=== PATIENT | female | born 1950 | race Caucasian/White ===

== ENCOUNTER → 2016-12-16 | Outpatient (REF) | payer MEDICARE, MEDICAID | LOC: M SFHCWAGY 09:41 | PROVIDERS: ATTEND Nurse Practitioner Family | DX: R87.615 Unsatisfactory cytologic smear of cervix (principal) ==

== ENCOUNTER → 2017-05-13 | Outpatient (REF) | payer MEDICARE, MEDICAID | LOC: M SFHCWAGY 12:10 | DX: Z12.4 Encounter for screening for malignant neoplasm of cervix (principal); N95.2 Postmenopausal atrophic vaginitis | CPT/HCPCS: G0123 ==

== ENCOUNTER → 2018-06-15 | Outpatient (CLI) | payer MEDICARE, MEDICAID ==
[2018-06-15 12:23] LABS: BASO % 0.8 % (0.0-1.0); EOS # 0.2 10^3/uL (0.0-0.50); HEMATOCRIT 43.6 % (36.0-47.0); HEMOGLOBIN 13.9 g/dl (12.0-15.5); LYMPH # 2.1 10^3/uL (1.5-4.5); LYMPH % 55.6 % (24.0-44.0); MEAN CORPUSCULAR HEMOGLOBIN 29.3 pg (27.0-33.0); MEAN CORPUSCULAR HGB CONC 31.9 g/dl (32.0-36.5); MEAN CORPUSCULAR VOLUME 91.8 fl (80.0-96.0); MONO # 0.2 10^3/uL (0.0-0.8); MONO % 6.1 % (0.0-5.0); NEUTROPHILS # 1.3 10^3/uL (1.8-7.7); NEUTROPHILS % 33.2 % (36.0-66.0); PLATELET COUNT, AUTOMATED 270 10^3/uL (150-450); RED BLOOD COUNT 4.75 10^6/uL (4.00-5.40); WHITE BLOOD COUNT 3.8 10^3/uL (4.0-10.0)
[2018-06-15 12:51] LABS: ALBUMIN 4.5 GM/DL (3.2-5.2); ALT/SGPT 33 U/L (12-78); BILIRUBIN,TOTAL 0.5 MG/DL (0.2-1.0); BLOOD UREA NITROGEN 11 MG/DL (7-18); CALCIUM LEVEL 9.9 MG/DL (8.8-10.2); CARBON DIOXIDE LEVEL 29 MEQ/L (21-32); CHLORIDE LEVEL 107 MEQ/L (98-107); CHOLESTEROL LEVEL 203 MG/DL (<200); CHOLESTEROL RISK RATIO 2.388 (<5); CREATININE FOR GFR 0.72 MG/DL (0.55-1.30); GLOMERULAR FILTRATION RATE > 60.0 (>45); GLUCOSE, FASTING 101 MG/DL (70-100); HDL CHOLESTEROL 85 MG/DL (>40); LDL CHOLESTEROL 102 MG/DL (<100); NON-HDL-C 118 MG/DL; POTASSIUM SERUM 5.7 MEQ/L (3.5-5.1); SODIUM LEVEL 139 MEQ/L (136-145); TRIGLYCERIDES LEVEL 79 MG/DL (<150)
[2018-06-15 12:58] LABS: TOTAL 25(OH) VITAMIN D 28.5 NG/ML (30.0-100.0)
== END ==
LOC: M WUC 10:22
PROVIDERS: ATTEND Family Medicine
DX: Z00.00 Encounter for general adult medical examination without abnormal findings (principal); E55.9 Vitamin D deficiency, unspecified; Z79.899 Other long term (current) drug therapy

== ENCOUNTER → 2019-08-28 | Outpatient (CLI) | payer MEDICARE, MEDICAID ==
[2019-08-28 14:24] LABS: THYROID STIMULATING HORMONE 0.845 uIU/ML (0.358-3.740); THYROXINE (T4) 8.3 UG/DL (4.5-12.0)
[2019-08-30 09:31] LABS: LUTEINIZING HORMONE 37.6 mIU/mL
[2019-08-30 09:32] LABS: FOLLICLE STIMULATING HORMONE 119.6 mIU/mL
[2019-08-31 18:13] LABS: TESTOSTERONE FREE (DIRECT) 0.7 pg/mL (0.0-4.2)
== END ==
LOC: M WUC 10:01
PROVIDERS: ATTEND Nurse Practitioner Family
DX: Z00.00 Encounter for general adult medical examination without abnormal findings (principal); Z79.899 Other long term (current) drug therapy

== ENCOUNTER → 2019-08-28 | Outpatient (CLI) | payer MEDICARE, MEDICAID ==
[2019-08-28 14:06] LABS: HEMOGLOBIN 13.2 g/dl (12.0-15.5); MEAN CORPUSCULAR HEMOGLOBIN 30.2 pg (27.0-33.0); MEAN CORPUSCULAR HGB CONC 32.2 g/dl (32.0-36.5); MEAN CORPUSCULAR VOLUME 93.8 fl (80.0-96.0); PLATELET COUNT, AUTOMATED 319 10^3/uL (150-450); RED BLOOD COUNT 4.37 10^6/uL (4.00-5.40); WHITE BLOOD COUNT 3.7 10^3/uL (4.0-10.0)
[2019-08-28 14:24] LABS: ALBUMIN 4.2 GM/DL (3.2-5.2); ALT/SGPT 33 U/L (12-78); BILIRUBIN,TOTAL 0.7 MG/DL (0.2-1.0); BLOOD UREA NITROGEN 13 MG/DL (7-18); CALCIUM LEVEL 9.4 MG/DL (8.8-10.2); CARBON DIOXIDE LEVEL 28 MEQ/L (21-32); CHLORIDE LEVEL 105 MEQ/L (98-107); CHOLESTEROL LEVEL 193 MG/DL (<200); CHOLESTEROL RISK RATIO 2.718 (<5); CREATININE FOR GFR 0.68 MG/DL (0.55-1.30); GLOMERULAR FILTRATION RATE > 60.0 (>45); GLUCOSE, FASTING 100 MG/DL (70-100); HDL CHOLESTEROL 71 MG/DL (>40); LDL CHOLESTEROL 111 MG/DL (<100); NON-HDL-C 122 MG/DL; POTASSIUM SERUM 4.3 MEQ/L (3.5-5.1); SODIUM LEVEL 138 MEQ/L (136-145); TOTAL PROTEIN 6.8 GM/DL (6.4-8.2); TRIGLYCERIDES LEVEL 56 MG/DL (<150)
[2019-08-30 09:31] LABS: TOTAL 25(OH) VITAMIN D 40.4 NG/ML (30.0-100.0)
== END ==
LOC: M WUC 09:58
PROVIDERS: ATTEND Family Medicine
DX: E55.9 Vitamin D deficiency, unspecified (principal); Z00.00 Encounter for general adult medical examination without abnormal findings; Z79.899 Other long term (current) drug therapy

== ENCOUNTER → 2019-09-22 | Outpatient (CLI) | payer MEDICARE, MEDICAID ==
[~2019-09-22] MED LIST: ANAS1TAB2 PO; CITRTAB14 PO; D31000TA2 PO; MULTCAP PO; OMEGCAP4 PO; OXYC1TAB23 PO; SERT50TA29 PO; VITA-243 PO
--- NOTE | 2019-09-22 12:34 | REP ---
BILATERAL MAMMOGRAM WITH 3D TOMOSYNTHESIS: Family history of breast cancer in sister over age 50 and maternal aunt over age 50. [facility] lifetime risk of breast cancer 14.5%. Comparison mammogram 12/16/2016 as well as other prior exams. MLO and CC views of both breasts are performed with 3D tomosynthesis. There is moderate dense heterogeneous fibroglandular tissue seen bilaterally. I suspect a spiculated nodule posteriorly in the upper outer quadrant of the left breast in the range of 1 cm in diameter. Just anterior to this, there appears to be a smoothly marginated nodule slightly greater than 1 cm in diameter. Otherwise, no mass is seen elsewhere bilaterally and there are no suspicious clustered microcalcifications. IMPRESSION: BIRADS 0: BI-RADS/ACR category 0 mammogram, Incomplete: Need additional imaging evaluation and/or prior mammograms for comparison. ACR 0 incomplete. Suspect spiculated nodule posterior upper outer quadrant of the left breast in the range of 1 cm in diameter. A smoothly marginated nodule is seen just anterior to this. Recommend spot compression views and ultrasound to further evaluate. ACR 0 incomplete. This mammogram was interpreted with the aid of an FDA-approved computer-aided detection system. The patient states that she or he has not had a clinical breast exam in over a year. Patient letter being requested is M0. Hari stauffer: Latayna
--- NOTE | 2019-10-27 10:24 | DEXA ---
AP SPINE L1 - L4 1.152 -0.3 1.3 LT FEMUR TOTAL 0.743 -2.1 -0.7 LT NECK 0.721 -2.3 -0.7 RT FEMUR TOTAL 0.759 -2.0 -0.6 RT NECK 0.777 -1.9 -0.3 TOTAL BODY TOTAL OTHER COMMENTS: Normal Bone Densitometry of the spine. There is low bone density of the hips. The decreased density of the spine does not represent a significant change. The increased density of the left hip does not represent a significant change. The decreased density of the right hip does not represent a significant change. The density of the spine has decreased 0.9% since the initial exam on 11/16/08. The decreased 1.1% since the most recent exam on 12/16/16. The density of the left hip has decreased 7.9% since the initial exam on 11/16/08. The density of the left hip has increased 1.1% since the most recent exam on 12/16/16. The density of the right hip has decreased 7.1% since the initial exam on 11/16/08. The density of the right hip has decreased 1.8% since the most recent exam on 12/16/16. FOLLOW-UP: Recommendation for the next bone density exam: 2 years. HANH
== END ==
LOC: M WHC 09:29
PROVIDERS: ATTEND Family Medicine
DX: R92.2 Inconclusive mammogram (principal); Z13.820 Encounter for screening for osteoporosis; M81.0 Age-related osteoporosis without current pathological fracture; Z80.3 Family history of malignant neoplasm of breast

== ENCOUNTER → 2019-09-24 | Outpatient (CLI) | payer MEDICARE, MEDICAID ==
--- NOTE | 2019-09-24 10:51 | REP ---
DIAGNOSTIC MAMMOGRAM LEFT BREAST WITH LEFT BREAST ULTRASOUND: Spot compression view of the left breast performed and correlated with a recent mammogram of 09/22/2019 and compared to other prior studies. Spot compression views confirm the present of an irregular nodule in the outer left breast approximately 4-5 cm from the nipple. This is in the range of 1 cm in diameter. Just anterior and inferior to this, in the region of 4-o'clock left breast, there is a smoothly marginated nodule with a maximum diameter of about 1 cm. Real-time sonographic evaluation of outer left breast demonstrate an irregular solid nodule at 2-o'clock to 3-o'clock positions, approximately 4 cm from the nipple, with a maximum diameter of 8 mm. This corresponds to the irregular nodule on the mammogram. At 4-o'clock position, there is an oval hypoechoic lesion, closer to the nipple, about 2-3 cm from the nipple, measuring 7 x 9 x 3 mm. IMPRESSION: BIRADS 5: BI-RADS/ACR category 5 mammogram. Highly Suggestive of Malignancy - appropriate action should be taken. ACR category 5, findings compatible with breast cancer. Irregular somewhat spiculated solid nodule identified mammographically and sonographically at 2-o'clock to 3-o'clock position of the left breast approximately 4 cm from the nipple. Recommend ultrasound guided biopsy. This nodule is consistent with cancer. More anteriorly and inferiorly at 4-o'clock left breast, closer to the nipple, there is an oval hypoechoic nodular, which could represents a complex cyst. Recommend ultrasound guided sampling. Patient letter requested is M4.
== END ==
LOC: M WHC 08:30
PROVIDERS: ATTEND Family Medicine
DX: R92.2 Inconclusive mammogram (principal); N63.21 Unspecified lump in the left breast, upper outer quadrant

== ENCOUNTER → 2019-10-06 | Outpatient (CLI) | payer MEDICARE, MEDICAID ==
--- NOTE | 2019-11-26 09:11 | REP ---
FOCUSED LEFT BREAST SONOGRAPHY: ULTRASOUND GUIDANCE This report was delayed due to a malware attack on this facility. HISTORY: Left breast mass, ultrasound-guided biopsy x2 at 2 o'clock and 4 o'clock with 2 clips placed. FINDINGS: Sonographic guidance is provided to Dr. Devries, who performed ultrasound- guided needle biopsy procedure at 2 targets with HydroMARK clip placement at both sites. HANH
--- NOTE | 2019-11-26 09:13 | REP ---
UNILATERAL DIGITAL DIAGNOSTIC LEFT BREAST MAMMOGRAPHY WITH CAD: 2-VIEWS HISTORY: Marker clip placement views. Patient is status post ultrasound-guided needle biopsy procedure for two different sonographic targets performed by Dr. Devries 2 o'clock and 4 o'clock position. Marker clip placement. COMPARISON: Mammography 09/24/2019 and 09/22/2019. FINDINGS: In the 2 o'clock position of the left breast superiorly and laterally there is a marker clip in good position within the inferior and anterior edge of the spiculated nodule. More inferiorly and laterally in the left breast a second marker clip is visualized. No mammographically apparent target is seen. No hematoma is noted. IMPRESSION: Marker clips in good position. This mammogram is read with the aid of a computer-aided detection system approved by the FDA. HANH
--- NOTE | 2019-12-02 19:16 | ROOPDOC ---
[facility] Report Of Operation Report of Operation This is a late entry note for the encounter from the date 10/06/19. Delay is due to major systemwide [facility] computer outage. Procedure Date 10/06/19 Dx: two suspicious lesions in the left breast at 2:00 and 4:00 Procedure: ultrasound guided biopsy of lesion at 2:00 and 4:00 Findin clips seen in expected position on the left postbiopsy mammogram Surgeon: Katelyn Walsh Lidocaine 1% LOT [id number] Expiration 08/2022 Sodium Bicarbonate 8.4% LOT [id number] Expiration 08/08/2020 L 2:00 bx: Hydromark clip LOT [id number] Expiration 07/2022 SHAPE 3 Bx device: BARD [id number] x10 cm LOT [id number] Expiration 04/2022 L 4:00 bx: Hydromark clip LOT [id number] Expiration 04/2022 SHAPE 4 Bx device: BARD [id number] x10 cm LOT [id number] Expiration 05/2022 Informed consent was obtained. The most common risk and possible complications including bleeding, hematoma, bruising, infection, injury to surrounding s tructures were explained to the patient and she expressed understanding. Patient was placed on the bed in the supine position. Appropriate time out was done stating patients name, date of , and the procedure to be performed. The left breast was prepped and draped in the usual fashion. The ultrasound was used to confirm the location of the lesions in the left breast at 2:00 3CFN and at 4:00 2CFN. Procedure was started with biopsy of the lesion at 2:00 3CFN. Plain Lidocaine 1% and 8.4% sodium bicarbonate 10:1 mix was used to anesthetize the skin, the biopsy site and tissues along the anticipated biopsy tract. Small skin incision was made with blade number 11. BARD Marquee 14G cannula with introducer ([id number]) was inserted through the incision and advanced under the ultrasound guidance to position immediately adjacent to the lesion. Next, the introducer was removed and BARD Marquee 14G biopsy device was places in the cannula. Pre- biopsy imaging, and post-biopsy imaging were captured. Five good core biopsies were taken at various levels of the lesion. Specimen was placed in formaldehyde, labeled with appropriate biopsy site and patients name, and sent to pathology for evaluation. Next, the biopsy device was withdrawn and a clip introducer was inserted into the biopsy site via the cannula. The SHAPE 3 Hydromark clip was deployed under sonographic guidance. Post-clip placement image was captured. Manual pressure over the biopsy cavity and tract was held after the clip introducer was withdrawn. No bleeding was noted upon removal of the pressure. At this point, our attention was shifter toward the lesion at 4:00 2 CFN. The u ltrasound was used to localize the lesion again. Next, plain Lidocaine 1% and 8.4% sodium bicarbonate 10:1 mix was used to anesthetize the skin, the biopsy site and tissues along the anticipated biopsy tract. Small skin incision was made with blade number 11. A new BARD Marquee 14G cannula with introducer ([id number]) was inserted through the incision and advanced under the ultrasound guidance to position immediately adjacent to the lesion. Next, the introducer was removed and BARD Marquee 14G biopsy device was places in the cannula. Pre- biopsy imaging, and post-biopsy imaging were captured. Five good core biopsies were taken at various levels of the lesion. Specimen was placed in formaldehyde, labeled with appropriate biopsy site and patients name, and sent to pathology for evaluation. Next, the biopsy device was withdrawn and a clip introducer was inserted into the biopsy site via the cannula. The SHAPE 4 Hydromark clip was deployed under sonographic guidance. Post-clip placement image was captured. Manual pressure over the biopsy cavity and tract was held after the clip introducer was withdrawn. No bleeding was noted upon removal of the pressure. Post-biopsy mammogram of the left breast was obtained and showed both clips in expected position. Postprocedural dressing was placed. Patient tolerated procedure well. Discharge instructions were discussed with the patient and she expressed understanding. KATELYN WALSH DO Dec 02, 2019 19:16
== END ==
LOC: M WHC 12:56
PROVIDERS: ATTEND Surgery
DX: N63.21 Unspecified lump in the left breast, upper outer quadrant (principal); N63.23 Unspecified lump in the left breast, lower outer quadrant

== ENCOUNTER → 2019-10-14 | Outpatient (REF) | payer MEDICARE, MEDICAID ==
[2019-11-28 11:42] LABS: BLOOD UREA NITROGEN 16 MG/DL (7-18); CALCIUM LEVEL 9.7 MG/DL (8.8-10.2); CARBON DIOXIDE LEVEL 32 MEQ/L (21-32); CHLORIDE LEVEL 106 MEQ/L (98-107); CREATININE FOR GFR 0.75 MG/DL (0.55-1.30); GLOMERULAR FILTRATION RATE > 60.0 (>45); GLUCOSE, FASTING 112 MG/DL (70-100); POTASSIUM SERUM 5.1 MEQ/L (3.5-5.1); SODIUM LEVEL 141 MEQ/L (136-145)
== END ==
LOC: M SFHCWAGY 12:42
PROVIDERS: ATTEND Surgery
DX: C50.912 Malignant neoplasm of unspecified site of left female breast (principal)

== ENCOUNTER → 2019-10-22 | Outpatient (CLI) | payer MEDICARE, MEDICAID ==
[~2019-10-22] MED LIST changes: +PROHANCE 279.3MG/ML 5ML VIAL As Ordered ONE
--- NOTE | 2019-11-30 07:48 | REP ---
BILATERAL BREAST MRI STUDY WITHOUT AND WITH INTRAVENOUS (IV) GADOLINIUM HISTORY: Left breast cancer. Patient has undergone ultrasound-guided needle biopsy procedure 10/06/2019. COMPARISON: Mammography and sonography of the left breast is from 09/24/2019. Post-clip placement mammogram of the left breast from 10/06/2019. GADOLINIUM ENHANCEMENT DOSE: 10 mL of intravenous ProHance. MRI FINDINGS: T2-weighted scans demonstrate that there are two HydroMARK needle biopsy marker clips devices in the lateral aspect of the left breast, one at approximately 4 o'clock in the posterior third and the other at approximately 2 o'clock in the posterior third of the left breast. There is no evidence of axillary lymphadenopathy on either side. No internal mammary adenopathy is appreciated. There is a moderate pattern of symmetric fibroglandular tissue. There is a [id number]-[id number] pattern of somewhat nodular background parenchymal enhancement bilaterally. Adjacent to the lesion in the left superolateral quadrant 2 o'clock region, there is a spiculated area of heterogeneous enhancement representing the known malignancy. There is only a small focus of enhancement demonstrating washout characteristics. The remainder of the lesion demonstrates fairly low level of enhancement, but it is suspicious morphologically. There is no other focus of enhancement washout characteristics in either breast on dynamically acquired sequential contrast enhanced study. No other suspicious morphologic abnormality is seen on either side. IMPRESSION: BI-RADS Category 6 known left breast malignancy. No other focus of suspicion is seen. Spiculated 8-mm lesion adjacent to the recently placed biopsy marker clip 2 o'clock position left breast upper outer quadrant. MTDD
== END ==
LOC: M RAD 07:20
PROVIDERS: ATTEND Physician Assistant Medical
DX: C50.912 Malignant neoplasm of unspecified site of left female breast (principal)
CPT/HCPCS: A9576; C8908

== ENCOUNTER → 2019-11-03 | Outpatient (CLI) | payer MEDICARE, MEDICAID ==
[~2019-11-03] MED LIST changes: -PROHANCE 279.3MG/ML 5ML VIAL As Ordered ONE
== END ==
LOC: M PLALAB 09:15
PROVIDERS: ATTEND Surgery
DX: C50.912 Malignant neoplasm of unspecified site of left female breast (principal)

== ENCOUNTER → 2019-11-04 | Outpatient (CLI) | payer MEDICARE, MEDICAID | LOC: M LABSMTC 12:44 | PROVIDERS: ATTEND Anesthesiology | DX: Z01.812 Encounter for preprocedural laboratory examination (principal); Z20.828 Contact with and (suspected) exposure to other viral communicable diseases | CPT/HCPCS: C9803; U0003 ==

== ENCOUNTER 2019-11-09 06:36 | Day surgery (SDC) | payer MEDICARE, MEDICAID ==
[~2019-11-09] VITALS: Ht 152.4 cm; Wt 50.3 kg
[~2019-11-09 06:36] MED LIST changes: -ANAS1TAB2 PO; -CITRTAB14 PO; -MULTCAP PO; -OXYC1TAB23 PO; -VITA-243 PO
[2019-11-09] MEDS ORDERED: HEPARIN SOD (PORCINE) 5000UNITS/ML 1ML VIAL/SYRINGE As Ordered ONE (07:24)
[2019-11-09] MEDS ORDERED: ceFAZolin 2 GM/D5W 50 ML IV BAG (J0690 PER 500MG) As Ordered ONE (07:24)
[2019-11-09] MEDS ORDERED: HEPARIN SOD (PORCINE) 5000UNITS/ML 1ML VIAL/SYRINGE SQ ONE (08:00)
[2019-11-09] MEDS ORDERED: LR 1,000 ML IV ONE (08:00)
[2019-11-09] MEDS ORDERED: ceFAZolin SOD 2 GM in IV 1 EA IV ONE (08:00)
[2019-11-09] MEDS ORDERED: LIDOCAINE 1% SDV 30ML VIAL As Ordered ONE (10:23)
[2019-11-09] MEDS ORDERED: BUPIVACAINE HCL 0.25% 30ML VIAL As Ordered ONE (10:23)
[2019-11-09] MEDS ORDERED: METHYLENE BLUE 0.5% (5MG/ML) 10 ML AMP (PROVAYBLUE) As Ordered ONE (10:24)
[2019-11-09] MEDS ORDERED: LIDOCAINE 2% 100MG/5ML SDV (FOR ANES.) As Ordered ONE (10:58)
[2019-11-09] MEDS ORDERED: MIDAZOLAM INJ 2MG/2ML VIAL (J2250 PER 1MG) As Ordered ONE (10:58)
[2019-11-09] MEDS ORDERED: propofoL 200 MG/20 ML VIAL As Ordered ONE ×2 (10:58→11:17)
[2019-11-09] MEDS ORDERED: dexameTHASONE 4 MG/ML 1ML VIAL (J1100 PER 1MG) As Ordered ONE (10:58)
[2019-11-09] MEDS ORDERED: ROCURONIUM BROMIDE 50 MG/5 ML VIAL As Ordered ONE (10:58)
[2019-11-09] MEDS ORDERED: SUCCINYLCHOLINE 100 MG/5 ML SYRINGE (J0330) As Ordered ONE (10:58)
[2019-11-09] MEDS ORDERED: ACETAMINOPHEN 1000MG 100ML IV BTL (OFIRMEV) (J0131 PER 10MG) As Ordered ONE (10:58)
[2019-11-09] MEDS ORDERED: METOCLOPRAMIDE INJ 10MG/2ML VIAL (J2765 PER 1) As Ordered ONE (10:58)
[2019-11-09] MEDS ORDERED: ONDANSETRON 4MG/2ML VIAL As Ordered ONE (10:58)
[2019-11-09] MEDS ORDERED: fentaNYL 250 MCG/5 ML INJECTION (J3010) As Ordered ONE (10:58)
[2019-11-09] MEDS ORDERED: PHENYLephrine HCL 500 MCG/5 ML (100MCG/ML) SYRINGE (J2370) As Ordered ONE (11:19)
[2019-11-09] MEDS ORDERED: ePHEDrine SULFATE 25 MG/5 ML(5MG/ML) SYRINGE As Ordered ONE (11:33)
[2019-11-09] MEDS ORDERED: OXYC1TAB23 PO (14:05)
[2019-11-09] MEDS ORDERED: LR 1,000 ML IV SCH (14:45)
[2019-11-09] MEDS ORDERED: fentaNYL 100 MCG/2 ML INJECTION (J3010) IV PRN (14:45)
[2019-11-09] MEDS ORDERED: ONDANSETRON 4MG/2ML VIAL IV PRN (14:45)
[2019-11-09] MEDS ORDERED: PERCOCET 5MG/325MG TAB PO PRN (14:45)
[2019-11-09] MEDS ORDERED: METOCLOPRAMIDE INJ 10MG/2ML VIAL (J2765 PER 1) IV PRN (14:45)
[2019-11-09 16:20] VITALS: BP 125/72
--- NOTE | 2019-11-09 20:42 | ROOPDOC ---
[facility] Report Of Operation Report of Operation DATE OF PROCEDURE: 11/09/19 PREPROCEDURE DIAGNOSES: Left breast cancer POSTPROCEDURE DIAGNOSES: Left breast cancer PROCEDURE: left breast lumpectomy with intraop wire placement and left sentinel lymph node biopsy SURGEON: Katelyn Walsh RENTAL COORDINATOR: ANESTHESIA: general ESTIMATED BLOOD LOSS: Approximately 5 mL. COMPLICATIONS: none REMARKS: wire is centrally placed in the specimen. hydromark was noted during dissection and removed to prevent misplacement. Black stitch was placed at the site of clip PROCEDURE NOTE: DESCRIPTION OF PROCEDURE: INDICATIONS: Ms. Vega was found to have a suspicious 2 lesions (2:00 and 4:00) in her left breast. Sono corelates were identified and US guided biopsy was done of each lesion. 2:00 left breast lesion came back as IDC which needs surgical i ntervention. 4:00 lesion came back as fibroadenomatous change and does not need surgical intervention. After detailed discussion regarding Ms. Vega 2:00 left breast cancer, patient opted for breast conservative surgery with sentinel lymph node biopsy with intraoperative wire placement. She was medically cleared for surgery by her primary care doctor. Risks and possible complications of surgical procedure including bleeding, infection and injury to surrounding structures were explained to the patient and she wished to proceed. Consent was signed. My initials were placed on the operative site. Subcutaneous injection of 5000 units of heparin was done in Preop. The injection of radioactive tracer was done in radiology department preoperatively. Lymphoscintigraphy imaging was reviewed in preop. DETAILS: Patient was taken to the operating room and placed on the operating room table. A sign in was called stating patients name, date of and the procedure to be done. Preoperative antibiotics were infused. Smooth induction of general anesthesia was done. Patients hands were extended on arm rests. Care was taken not to over extend the arms. Procedure was started with left breast intraop wire localization. Appropriate time out was done and patients name, date of , and the procedure to be done were confirmed. Left breast was cleaned by me. Intraoperative ultrasound was used to confirm location of the Hydromark clip. Location of the clip was marked on the skin as well. 21 G Kopans Breast Lesion Localization Needle was used to place 25 cm wire through the lesion. The wire was placed between the Hydromark clip and the hypoechoic cancer lesion. The tip of the wire was passed a centimeter deep. The images were captured confirming adequate placement of the localizing wire. Media Executive assisted with the wire placement. Next, patients left breast and axilla were prepped and draped in the usual fashion. Care was taken not to displace the wire. Appropriate time out was done again prior second part of the procedure. Patients name, date of , and the procedure to be done were confirmed. Procedure was started with sentinel lymph node biopsy. Neoprobe was used to locate area of maximum intensity of the signal. Local anesthetic using 1% lidocaine and 0.25 % Marcaine 50/50 mix was injected. An incision was made with scalpel number 15 at the inferior aspect of axillary hair line in the left axilla where the maximum signal was identified. The sharp and blunt dissection was continued through the subcutaneous adipose tissue. Clavipectoral fascia was opened. Neoprobe was used to guide the dissection. First sentinel lymph node was identified and excised. The ex-vivo 10 second count was 5142. Second sentinel lymph node was identified and excised as well. The ex-vivo 10 second count was 1226. The specimens were labeled with patients name and sent to pathology. No additional lymph nodes with high radioactive signal were identified. The 10 second count of the background was 44. Adequate hemostasis was assured. Additional local anesthetic was injected into surrounding tissues. Wound was irrigated. Clavipectoral fascia was closed with 2-0 Vicryl interrupted suture. Dermal layer was closed at the end of the case with 3-0 Monocryl and skin was closed with 4-0 Monocryl. Surgical glue was applied to the incision at the end of the procedure. Next, our attention was turned toward the left breast. Local anesthetic using 1% lidocaine and 0.25 % Marcaine 50/50 mix was injected at the site of planned periareolar incision. The incision was made with the scalpel. Subcutaneous skin flaps were raised and the guide wire was carefully pulled into the wound. Diss ection was carries along the wire until the previously marked on the skin area of target lesion location was encountered. At this point, wider excision of the tissue surrounding the wire was done. The Hydromark clip was identified in the tissue with intraoperative hockey stick ultrasound probe. The end of the wire was identified with palpation. During dissection, clip was noted exposed and was removed from the tissue to avoid misplacement of the clip. The Silk stitch was placed at the site of clip. Deep margin was at the pectoralis muscle and anterior margin was very thin. The lumpectomy specimen was carefully removed from the breast keeping its proper orientation and moved to the back table where margins were marked with the surgical inking kit following the standard colors recommendations. Specimen was then placed on the grid and placed in [employer] Specimen Imaging System. The image revealed the wire centrally located. The Hydromark was placed next to the specimen on the grid as well and radiographed. The specimen was labeled with patients name and left lumpectomy and sent to pathology. Next, four additional margins were taken: inferior, superior, medial, and lateral. All new margins, defined as margin farthest away from lumpectomy cavity, were marked with black ink. Each margin was sent as a separate specimen with appropriate labeling. Deep margin of the lumpectomy was at the pectoralis muscle and anterior lumpectomy margin was very thin, hence no additional margins were taken at those locations. Wound was thoroughly irrigated. Adequate hemostasis was assured. Additional local anesthetic was injected into surrounding tissues. Clips were placed to stephania the cavity. space was approximated with 2-0 Vicryl. The dermis was closed with 3-0 Monocryl and skin was closed with 4-0 Monocryl. Surgical glue was placed over the incision. Patient emerged from the anesthesia without any problems. Fluffs were placed over the operative site and patients chest was wrapped snuggly in the CARLITA wrap. Sponge and instrument counts were done and were correct. Patient tolerated procedure well and was taken to recovery unit in stable condition. KATELYN WALSH DO Nov 09, 2019 20:42
--- NOTE | 2019-12-06 10:36 | REP ---
SPECIMEN RADIOGRAPHS HISTORY: Lumpectomy left breast. FINDINGS: Specimen radiographs are performed following lumpectomy. The Kopans wire is seen with the hook within the surgical specimen. Central irregular soft tissue nodule is seen and there appear to be adequate surgical margins circumferentially. The previously noted biopsy clip is seen adjacent to the specimen. MTDD
--- NOTE | 2019-12-06 10:36 | REP ---
ULTRASOUND GUIDANCE FOR NEEDLE LOCALIZATION LEFT BREAST NODULE Ultrasound guidance was provided for Dr. Devries for needle localization of a previously biopsied nodule at the 2 o'clock position of the left breast. The nodule is seen containing the biopsy clip. The Kopans wire is seen along the margin of the nodule. MTDD
[2019-12-08] MEDS ORDERED: VITA-243 PO (13:03)
[2020-01-10] MEDS ORDERED: MULTCAP PO (09:42)
[2020-01-10] MEDS ORDERED: CITRTAB14 PO (09:42)
[2020-01-10] MEDS ORDERED: ANAS1TAB2 PO (10:09)
== END 2019-11-09 16:35 | disposition home or self-care (01) ==
LOC: M SDC 06:36
PROVIDERS: ATTEND Surgery
DX: C50.812 Malignant neoplasm of overlapping sites of left female breast (principal); Z17.0 Estrogen receptor positive status [ER+]; F32.9 Major depressive disorder, single episode, unspecified; F41.9 Anxiety disorder, unspecified; D72.819 Decreased white blood cell count, unspecified
CPT/HCPCS: 19125; 36415; 38525; 76942; 78195; 86850; 86900; 86901; 88305; 88307; A9541; J0131; J0330; J0690; J1100; J1644; J2250; J2370; J2405; J2765; J3010

== ENCOUNTER → 2019-12-07 | Outpatient (CLI) | payer MEDICARE, MEDICAID ==
[~2019-12-07] MED LIST changes: +ANAS1TAB2 PO; +CITRTAB14 PO; +MULTCAP PO; +OXYC1TAB23 PO; +VITA-243 PO
--- NOTE | 2019-12-07 12:29 | RADONC.CN ---
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 She is seen today for consideration of adjuvant RT. Diagnosis/Treatment History Oncologic History 09/22/19 mammo followed by US with left 2:00 & 4:00 lesions 10/06/19 biopsy confirming IDC ER/FL+ HER2- Gr2 in 2:00 lesion. 4:00 negative 10/22/19 MRI breast with 2:00 lesion c/w known tumor no adenopathy 11/03/19 Genetic testing negative 11/09/19 Lumpectomy w/ SLNB pT1cN0(sn)M0 Interval History Feels well, recovered completely from surgery. No cosmetic concerns. No impaired ROM. Appetite and energy levels good, weight stable. No pain. Past Medical History: Breast Hx: Menses 12 LMP unknown Menopause 50s Breast feed yes OCP yes 10 years HRT/fertility no PMH chronic leukopenia Past Surgical History: As above Family History: Family history of breast cancer, bladder cancer, brain tumor Social History: Non smoker Drinks 3 drinks per week Allergies / Meds Allergies: Coded Allergies: No Known Allergies (Unverified , 11/09/19) Home Meds Active Scripts Oxycodone HCl/Acetaminophen (Oxycodone-Acetaminophen 5-325) 1 Each Tablet, 1 TAB PO QIDP PRN for pain MDD 4 Tablet(s) for 5 Days, #10 TAB Prov:KATELYN WALSH DO 11/09/19 Reported Medications Cholecalciferol (Vitamin D3) (Vitamin D3) 1,000 Unit Tablet, 3000 UNITS PO DAILY, TAB 11/08/19 [place]-3/Dha/Epa/Fish Oil ([place]-3 Fish Oil 1,000 mg Sfgl) 1,000 Mg Capsule, 1 CAP PO DAILY, CAP 11/08/19 Sertraline HCl (Sertraline HCl) 50 Mg Tablet, 50 MG PO DAILY 11/08/19 Review of Systems Constitutional: Denies: Chills, Fever, Night Sweats Eyes: Denies: Pain, Vision change HEENT: Denies: Head Aches, Dysphagia, Sore Throat Skin: Denies: Rash, Lesions, Bruising Pulmonary: Denies: Dyspnea, Cough Cardiovascular: Denies: Chest Pain, Palpitations, Edema Breast: Denies: New Breast Lumps / Masses, Nipple Retraction, Nipple Discharge, Breast Skin Changes, Breast Pain or Tenderness, Other Breast Complaints Gastrointestinal: Denies: Nausea, Vomiting, Abdominal Pain, Diarrhea Genitourinary: Denies: Dysuria, Frequency, Incontinence Hematologic: Denies: Bruising, Petecchia, Enlarged Lymph Nodes Endocrine: Denies: Polydipsia, Polyphagia, Polyuria, Heat Intolerance, Cold Intolerance, Other Endocrine Sx Musculoskeletal: Denies: Neck pain, Back pain Neurological: Denies: Weakness, Numbness, Incoordination Psych: Reports: Mood Normal; Denies: Memory Issues, Thoughts of Self Harm General Exam: Positive: Alert, Cooperative, No Acute Distress Eye Exam: Positive: PERRLA, EOMI ENT EXAM: Positive: Mucous membr. moist/pink, Pharynx Normal Neck Exam: Negative: Thyromegaly, Lymphadenopathy Chest Exam: Positive: Normal air movement; Negative: Rales, Rhonchi, Wheezing Heart Exam: Positive: Rate Normal, Regular Rhythm Breast Exam: Positive: Symmetric Bilaterally, Other Breast Findings (Left periareolar incision healed with dermabond in place); Negative: Lumps or Masses, Nipple Retraction, Skin Changes Abdomen Exam: Positive: Soft; Negative: Tenderness, Mass Extremity Exam: Negative: Edema, Tenderness Skin Exam: Positive: Nl turgor and temperature; Negative: Rash Neuro Exam: Positive: Normal Gait, Normal Speech, Cranial Nerves 3-12 NL Diagnostic and Laboratory Diagnostic Review Radiologic images, relevant labs and pathology reports were personally reviewed and discussed with Ms. Vega. Assessment and Plan Impression Ms. 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 She is seen today for consideration of adjuvant RT. Stage Stage IA pT1cN0(sn)M0 ER/FL+ HER2- Gr 2 Performance Status ECOG 0 Plan We had an extensive discussion with Ms. Vega regarding the diagnosis at hand and available therapeutic options. She is quite fit and healthy otherwise and has early stage left breast cancer with widely negative margins and favorable pathology. I consider her an excellent candidate for partial breast irradiation. I offered her 40 Gy in 15 fractions per IMPORT LOW or 26 Gy in 5 fractions per the FAST FORWARD trial. She selected the 40 Gy in 15 fraction regimen on the basis of more mature followup. I will treat her supine as her breast is small and she is unlikely to derive benefit from prone treatment, especially given that her tumor was lateral and that we will be treating a partial breast volume. She will likely receive no appreciable heart or lung dose. We discussed the logistics of receiving radiation therapy in detail including the need for a 1-time planning session. We reviewed the side effects of treatment including skin reaction, fibrosis and altered cosmesis. She is to see medical oncology tomorrow for consideration of AI which she i ntends to take. After discussing the risks, benefits and alternatives to radiation therapy, Ms. Vega was amenable to pursuing radiotherapy. All questions were answered to the patient's satisfaction. We instructed the patient that if there were any questions,concerns or changes in clinical status in the interim to contact us. Recommendations PBI 40 Gy in 15 fractions Simulation in the coming week PRAVEENA BURNS MD Dec 07, 2019 12:29
== END ==
LOC: M ONCR 10:58
PROVIDERS: ATTEND General Practice
DX: C50.412 Malignant neoplasm of upper-outer quadrant of left female breast (principal)

== ENCOUNTER 2020-01-07 10:03 | Outpatient (RCR) | payer MEDICARE, MEDICAID ==
[~2020-01-07 10:03] MED LIST changes: -ANAS1TAB2 PO; -CITRTAB14 PO; -MULTCAP PO
[2020-01-10] MEDS ORDERED: MULTCAP PO (09:42)
[2020-01-10] MEDS ORDERED: CITRTAB14 PO (09:42)
[2020-01-10] MEDS ORDERED: ANAS1TAB2 PO (10:09)
== END 2020-01-08 ==
LOC: M ONCR 10:03
PROVIDERS: ATTEND General Practice
DX: C50.412 Malignant neoplasm of upper-outer quadrant of left female breast (principal)

== ENCOUNTER 2020-01-12 10:06 | Outpatient (RCR) | payer MEDICARE, MEDICAID ==
[~2020-01-12 10:06] MED LIST changes: +ANAS1TAB2 PO; +CITRTAB14 PO; +MULTCAP PO
== END 2020-02-07 ==
LOC: M ONCR 10:06
PROVIDERS: ATTEND General Practice
DX: C50.412 Malignant neoplasm of upper-outer quadrant of left female breast (principal)

== ENCOUNTER → 2020-02-08 | Outpatient (REF) | payer MEDICARE, MEDICAID ==
[~2020-02-08] MED LIST changes: +CIDA500T2 PO; +MULT-90 PO
== END ==
LOC: M SFHCWAGY 13:20
PROVIDERS: ATTEND Nurse Practitioner Family
DX: Z12.4 Encounter for screening for malignant neoplasm of cervix (principal); N95.8 Other specified menopausal and perimenopausal disorders
CPT/HCPCS: G0101; G0123

== ENCOUNTER → 2020-07-19 | Outpatient (CLI) | payer MEDICARE, MEDICAID ==
--- NOTE | 2020-07-19 10:52 | RADONC ---
Radiation Oncology Hx/FUP Radiation Oncology Hx/FUP Date of Service: July 19, 2020 Pt Identifier Ruht Vega is a 70 year old female seen for a followup visit today at the department of radiation oncology for a history of screening detected pT1cN0(sn)M0 ER/NH+ HER2- Gr 2 IDC of the left upper outer quadrant. She completed adjuvant hypofractionated PBI 40 Gy in 15 fractions on 01/12/20. Diagnosis/Treatment History Oncologic History 09/22/19 mammo followed by US with left 2:00 & 4:00 lesions 10/06/19 biopsy confirming IDC ER/NH+ HER2- Gr2 in 2:00 lesion. 4:00 negative 10/22/19 MRI breast with 2:00 lesion c/w known tumor no adenopathy 11/03/19 Genetic testing negative 11/09/19 Lumpectomy w/ SLNB pT1cN0(sn)M0 12/23/19-01/12/20 PBI 40 Gy in 15 fractions January 2020-Anastrazole Survivorship Test Due Next Last result Notes TSH, T4* 6m post-tx, then q1y N/A Carotid US* q10 y post-tx N/A Smoking cessation Assess annually if applicable N/A Screening CT chest q1y if eligible per USPSTF N/A Mammograms Min q1y, if breast conservation Summer 2020 CBC,CMP, Lipids q1y Fall 2020 DEXA q2y if on AI 2021 Interval History Feels well. No complaints related to RT. Recently returned from [place]. Appetite and energy levels good. She has no pain in the left breast. No swelling. Has a mammogram scheduled for later this summer. Current Therapy Anastrozole Stage Left breast cancer [id number] ER/NH+ HER2- Grade 2 Stage IA Social History: Non smoker Drinks 3 drinks per week Allergies / Meds Allergies: Coded Allergies: No Known Allergies (Unverified , 11/09/19) Home Meds Active Scripts Anastrozole (Anastrozole) 1 Mg Tablet, 1 TAB PO DAILY for 90 Days, #90 TAB 3 Refills Prov:ROBERT PLAZA MD 02/14/20 Reported Medications Glucosamine/Chondr Zheng A Sod (Cidaflex Tablet) 1 Each Tablet, 3 TAB PO, TAB 02/14/20 Multivitamin (Multivitamin) 1 Each Tablet, 1 EACH PO, TAB 02/14/20 Calcium Citrate/Vitamin D3 (Citracal-D3 250Mg-200 Unit Tab) 250 Mg Calcium-5 Mcg (200 Unit) Tablet, 1 EACH PO DAILY, TAB 01/10/20 Multivitamin (Multivitamins) 1 Each Capsule, 1 CAP PO DAILY for 30 Days, #30 CAP 01/10/20 Ascorbic Acid (Vitamin C) 500 Mg Tablet, 500 MG PO DAILY for 30 Days, #30 TAB 12/08/19 [place]-3/Dha/Epa/Fish Oil ([place]-3 Fish Oil 1,000 mg Sfgl) 1,000 Mg Capsule, 1200 MG PO DAILY, CAP 11/08/19 Sertraline HCl (Sertraline HCl) 50 Mg Tablet, 50 MG PO DAILY 11/08/19 Review of Systems Review of Systems Constitutional: Denies: Fatigue Eyes: Denies: Pain HEENT: Denies: Head Aches Skin: Denies: Rash Breast: Denies: New Breast Lumps / Masses, Nipple Retraction, Nipple Discharge, Breast Pain or Tenderness Pulmonary: Denies: Dyspnea Cardiovascular: Denies: Chest Pain Gastrointestinal: Denies: Abdominal Pain Musculoskeletal: Reports: Joint pain Neurological: Denies: Weakness, Numbness Psych: Reports: Mood Normal Physical Examination Vital Signs Wt 113 lbs T 97.5 P 92 RR 18 BP 162/91 O2 99% Pain 0 Fatigue 1 General Exam: Positive: Alert, Cooperative, No Acute Distress Eye Exam: Positive: PERRLA, EOMI ENT EXAM: Positive: Atraumatic Neck Exam: Positive: Supple Chest Exam: Positive: Clear to auscultation Heart Exam: Positive: Rate Normal Breast Exam: Positive: Symmetric Bilaterally, Skin Changes (Mild hyperpigmentation left breast skin, very faint, no telangiectasias); Negative: Lumps or Masses (No palpable lesions BL breast and axillae. Breast symmetrical. Grade 1 fibrosis left breast behind the nipple ), Nipple Retraction , Nipple Discharge Abdomen Exam: Positive: Soft Extremity Exam: Negative: Edema Skin Exam: Positive: Nl turgor and temperature Neuro Exam: Positive: Normal Gait, Normal Speech, Cranial Nerves 3-12 NL Psych Exam: Positive: Mental status NL Diagnostic and Laboratory Diagnostic Review Radiologic images, relevant labs and pathology reports were personally reviewed and discussed with Ms. Vega. Assessment and Plan Impression Assessment Ms. Vega is a 70 year old female with a history of screening detected pT1cN0(sn)M0 ER/NH+ HER2- Gr 2 IDC of the left upper outer quadrant. She completed adjuvant hypofractionated PBI 40 Gy in 15 fractions on 01/12/20. She is doing well. Has mammography set up for later this Summer. No evidence of disease on exam. Minimal hyperpigmentation in the treated breast. We agreed to follow up again in 6 months, then if all is well at next visit she could continue in annual follow up with me. Performance Status ECOG 0 Plan Follow up in 6 months Ms. Vega was encouraged to call with questions or concerns in the interim period. Billing Statement Total time of [22] minutes was spent preparing for the visit [1], obtaining HPI [4], examining the patient [4], reviewing diagnostic tests [0], discussing management options [4], coordinating care [1], and writing this note [8]. PRAVEENA BURNS MD July 19, 2020 10:52
== END ==
LOC: M ONCR 09:50
PROVIDERS: ATTEND General Practice
DX: C50.412 Malignant neoplasm of upper-outer quadrant of left female breast (principal)

== ENCOUNTER → 2020-09-25 | Outpatient (CLI) | payer MEDICARE, MEDICAID ==
--- NOTE | 2020-09-25 14:28 | REP ---
INDICATION: STEVIE DIAG MAMMO/LEFT BREAST BX SITE. COMPARISON: Comparison mammography September 24, 2019, September 22, 2019, and December 16, 2016. Comparison sonography of the left breast is from September 24, 2019. TECHNIQUE: Bilateral CC and MLO) view(s) were taken. Targeted left breast sonography is performed as requested. FINDINGS: Breast parenchyma is heterogeneously dense in a pattern which may inhibit the sensitivity of mammography. There are surgical clips in the excision or biopsy site of the upper outer quadrant on the left. Breast parenchyma is otherwise normal and symmetric. No change from comparison mammography. 3D tomography shows no additional abnormality. The Volpara volumetric breast density pattern is C. Targeted sonographic. Scanning in the left breast in the excision a biopsy site 4 o'clock position shows heterogeneous fibroglandular background echotexture. No mass, suspicious acoustic shadowing, or fluid collection is seen. No suspicious sonographic abnormality. IMPRESSION: BIRADS/ACR category 2 benign mammographic and sonographic findings.. This mammogram was interpreted with the aid of an FDA-approved computer-aided detection system. The patient states she had a clinical breast exam in May of 2020. The patient letter being requested is M2 dense. RECOMMENDATION: Repeat screening mammography recommended 1 year (for women over 40). <Electronically signed by Pavel Marin > 09/25/20 [id number]
== END ==
LOC: M WHC 12:51
PROVIDERS: ATTEND Surgery
DX: C50.412 Malignant neoplasm of upper-outer quadrant of left female breast (principal)
CPT/HCPCS: 76642; 77066; G0279

== ENCOUNTER → 2020-09-26 | Outpatient (CLI) | payer MEDICARE, MEDICAID ==
--- NOTE | 2020-09-26 13:51 | REP ---
INDICATION: BACK PAIN, SHOULDER PAIN. COMPARISON: None. TECHNIQUE/RADIOTRACER AND DOSE: 20.8 mCi of Technetium-99m MDP was injected and standard whole-body bone scanning is acquired. FINDINGS: There is a normal distribution of skeletal tracer with uptake in bilateral kidneys and in the urinary bladder. There is no evidence to suggest skeletal metastatic disease. There is an arthritic pattern of increased uptake in the medial aspect of the left knee. There is a linear pattern of increased uptake again noted in what appears to be the L1 vertebral body consistent with degenerative disc disease. There is degenerative uptake in the mid thoracic spine as well. There is no evidence to suggest skeletal metastatic disease. Mild arthritic uptake is appreciated the hips, right more so than left. There is also an arthritic pattern of increased uptake in the right shoulder compared to the left. IMPRESSION: Degenerative uptake pattern in the thoracolumbar spine, right shoulder, right hip and left knee. No evidence to suggest skeletal metastatic disease.. <Electronically signed by Pavel Marin > 09/26/20 [id number]
== END ==
LOC: M RAD 09:47
PROVIDERS: ATTEND Internal Medicine Medical Oncology
DX: M54.5 Low back pain (principal); M25.559 Pain in unspecified hip; M25.519 Pain in unspecified shoulder
CPT/HCPCS: 78306; A9503

== ENCOUNTER → 2020-10-05 | Outpatient (CLI) | payer MEDICARE, MEDICAID ==
--- NOTE | 2020-10-05 14:45 | REP ---
INDICATION: Follow-up COMPARISON: 10/06/2019 and 09/25/2020 By history, the result of the biopsy performed 10/06/2019 was benign fibroadenoma. TECHNIQUE: Focused ultrasound at 4 o'clock FINDINGS: Review of the images obtained 09/25/2020 did not identify a breast abnormality or a post biopsy clip. Those images were obtained at the 4 o'clock position as indicated on the images. Today's examination shows a smoothly marginated oval-shaped hypoechoic nodule which contains an echogenic focus consistent with a previously placed biopsy clip. The size of the nodule has decreased compared to 10/06/2019. The nodule has no suspicious ultrasonographic characteristics and is consistent with the previous diagnosis. IMPRESSION: As above <Electronically signed by Kwame Smith > 10/05/20 [id number]
== END ==
LOC: M WHC 13:32
PROVIDERS: ATTEND Nurse Practitioner Women's Health
DX: D24.2 Benign neoplasm of left breast (principal); Z97.8 Presence of other specified devices

== ENCOUNTER → 2021-01-16 | Outpatient (CLI) | payer MEDICARE, MEDICAID ==
--- NOTE | 2021-01-16 11:16 | RADONC ---
Radiation Oncology Hx/FUP Radiation Oncology Hx/FUP Date of Service: Jan 16, 2021 Pt Identifier Ruth Vega is a 70 year old female seen for a followup visit today at the department of radiation oncology for a history of screening detected pT1cN0(sn)M0 ER/NC+ HER2- Gr 2 IDC of the left upper outer quadrant. She c ompleted adjuvant hypofractionated PBI 40 Gy in 15 fractions on 01/12/20. Diagnosis/Treatment History Oncologic History 09/22/19 mammo followed by US with left 2:00 & 4:00 lesions 10/06/19 biopsy confirming IDC ER/NC+ HER2- Gr2 in 2:00 lesion. 4:00 negative 10/22/19 MRI breast with 2:00 lesion c/w known tumor no adenopathy 11/03/19 Genetic testing negative 11/09/19 Lumpectomy w/ SLNB pT1cN0(sn)M0 12/23/19-01/12/20 PBI 40 Gy in 15 fractions 09/26/20 Bone scan (shoulder pain) showing arthritis January 2020-Anastrazole Survivorship Test Due Next Last result Notes TSH, T4* 6m post-tx, then q1y N/A Carotid US* q10 y post-tx N/A Smoking cessation Assess annually if applicable N/A Screening CT chest q1y if eligible per USPSTF N/A Mammograms Min q1y, if breast conservation March 2021summer 2020 negative CBC,CMP, Lipids q1y 2021 DEXA q2y if on AI 2021 Interval History Ruth has no complaints. She feels well. She has preserved energy and appetite. No skin concerns. Current Therapy Anastrozole/Prolia Stage Left breast cancer [id number] ER/NC+ HER2- Grade 2 Stage IA Social History: Non smoker Drinks 3 drinks per week Allergies / Meds Allergies: Coded Allergies: No Known Allergies (Unverified , 11/09/19) Home Meds Active Scripts Anastrozole (Anastrozole) 1 Mg Tablet, 1 TAB PO DAILY for 90 Days, #90 TAB 3 Refills Prov:ROBERT PLAZA MD 02/14/20 Reported Medications Multivitamin (Multivitamin) 1 Each Tablet, 1 EACH PO DAILY, TAB 08/14/20 Glucosamine/Chondr Zheng A Sod (Cidaflex Tablet) 1 Each Tablet, 3 TAB PO, TAB 02/14/20 Multivitamin (Multivitamin) 1 Each Tablet, 1 EACH PO, TAB 02/14/20 Calcium Citrate/Vitamin D3 (Citracal-D3 250Mg-200 Unit Tab) 250 Mg Calcium-5 Mcg (200 Unit) Tablet, 1 EACH PO DAILY, TAB 01/10/20 Ascorbic Acid (Vitamin C) 500 Mg Tablet, 500 MG PO DAILY for 30 Days, #30 TAB 12/08/19 [place]-3/Dha/Epa/Fish Oil ([place]-3 Fish Oil 1,000 mg Sfgl) 1,000 Mg Capsule, 1200 MG PO DAILY, CAP 11/08/19 Sertraline HCl (Sertraline HCl) 50 Mg Tablet, 50 MG PO DAILY 11/08/19 Review of Systems Review of Systems Constitutional: Denies: Fatigue Eyes: Denies: Pain HEENT: Denies: Head Aches Skin: Denies: Rash Breast: Denies: New Breast Lumps / Masses, Breast Pain or Tenderness Pulmonary: Denies: Dyspnea Cardiovascular: Denies: Chest Pain Gastrointestinal: Denies: Abdominal Pain Musculoskeletal: Reports: Shoulder pain, Joint pain; Denies: Neck pain Neurological: Denies: Weakness, Numbness Psych: Reports: Mood Normal Physical Examination Vital Signs Ht 60" Wt 113 lbs BMI 22 P 85 RR 18 BP 135/85 O2 99% Pain 0 Fatigue 0 General Exam: Alert, Cooperative, No Acute Distress Eye Exam: PERRLA, EOMI ENT EXAM: Atraumatic Neck Exam: Supple; Negative: Lymphadenopathy Chest Exam: Clear to auscultation Heart Exam: Rate Normal Breast Exam: Symmetric Bilaterally; Negative: Lumps or Masses, Nipple Retraction, Nipple Discharge, Skin Changes Abdomen Exam: Soft Extremity Exam: Negative: Edema Skin Exam: Nl turgor and temperature Neuro Exam: Normal Gait, Normal Speech, Cranial Nerves 3-12 NL Psych Exam: Mental status NL Diagnostic and Laboratory Diagnostic Review Radiologic images, relevant labs and pathology reports were personally reviewed and discussed with Ms. Vega. Assessment and Plan Impression Assessment Ms. Vega is a 70 year old female with a history of screening detected pT1cN0(sn)M0 ER/NC+ HER2- Gr 2 IDC of the left upper outer quadrant. She completed adjuvant hypofractionated PBI 40 Gy in 15 fractions on 01/12/20. She is doing well overall, no post-RT concerns or evidence of recurrent disease on exam. She is up-to-date with screening and has medical oncology followup. Thus we agreed to following up in 1 year. Performance Status ECOG 0 Plan Follow up in 1 year Ms. Vega was encouraged to call with questions or concerns in the interim period. Billing Statement Total time of [21] minutes was spent preparing for the visit [2], obtaining HPI [4], examining the patient [3], reviewing diagnostic tests [2], discussing management options [3], coordinating care [1], and writing this note [6]. PRAVEENA BURNS MD Jan 16, 2021 11:16
== END ==
LOC: M ONCR 10:32
PROVIDERS: ATTEND General Practice
DX: C50.412 Malignant neoplasm of upper-outer quadrant of left female breast (principal); Z92.3 Personal history of irradiation

== ENCOUNTER → 2021-07-11 | Outpatient (CLI) | payer MEDICARE, MEDICAID ==
[~2021-07-11] MED LIST changes: -D31000TA2 PO; +VITA100093 PO
[2021-07-11 10:59] LABS: HEMATOCRIT 41.3 % (36.0-47.0); HEMOGLOBIN 13.2 g/dl (12.0-15.5); MEAN CORPUSCULAR HEMOGLOBIN 29.7 pg (27.0-33.0); PLATELET COUNT, AUTOMATED 341 10^3/uL (150-450); RED BLOOD COUNT 4.44 10^6/uL (4.00-5.40); WHITE BLOOD COUNT 4.9 10^3/uL (4.0-10.0)
[2021-07-11 11:31] LABS: ALBUMIN 4.2 GM/DL (3.2-5.2); ALT/SGPT 27 U/L (12-78); BILIRUBIN,TOTAL 0.5 MG/DL (0.2-1.0); BLOOD UREA NITROGEN 17 MG/DL (7-18); CALCIUM LEVEL 9.6 MG/DL (8.8-10.2); CARBON DIOXIDE LEVEL 29 MEQ/L (21-32); CHLORIDE LEVEL 106 MEQ/L (98-107); CHOLESTEROL LEVEL 185 MG/DL (<200); CHOLESTEROL RISK RATIO 2.534 (<5); GLOMERULAR FILTRATION RATE > 60.0 (>39); GLUCOSE, FASTING 114 MG/DL (70-100); HDL CHOLESTEROL 73 MG/DL (>40); LDL CHOLESTEROL 94 MG/DL (<100); NON-HDL-C 112 MG/DL; POTASSIUM SERUM 4.5 MEQ/L (3.5-5.1); SODIUM LEVEL 140 MEQ/L (136-145); TOTAL PROTEIN 6.6 GM/DL (6.4-8.2); TRIGLYCERIDES LEVEL 92 MG/DL (<150)
== END ==
LOC: M WUC 08:08
PROVIDERS: ATTEND Family Medicine
DX: Z00.00 Encounter for general adult medical examination without abnormal findings (principal)

== ENCOUNTER → 2021-10-08 | Outpatient (CLI) | payer MEDICARE, MEDICAID | LOC: M WHC 09:11 | PROVIDERS: ATTEND Nurse Practitioner Women's Health | DX: C50.412 Malignant neoplasm of upper-outer quadrant of left female breast (principal) ==

== ENCOUNTER → 2021-10-08 | Outpatient (CLI) | payer MEDICARE, MEDICAID | LOC: M WHC 09:14 | PROVIDERS: ATTEND Family Medicine | DX: Z13.820 Encounter for screening for osteoporosis (principal); M85.851 Other specified disorders of bone density and structure, right thigh; M85.852 Other specified disorders of bone density and structure, left thigh; C50.412 Malignant neoplasm of upper-outer quadrant of left female breast | CPT/HCPCS: 77066; 77080; G0279 ==

== ENCOUNTER → 2022-10-14 | Outpatient (CLI) | payer MEDICARE, MEDICAID | LOC: M WHC 13:01 | PROVIDERS: ATTEND Surgery | DX: C50.412 Malignant neoplasm of upper-outer quadrant of left female breast (principal) | CPT/HCPCS: 77066; G0279 ==

== ENCOUNTER → 2023-08-26 | Outpatient (CLI) | payer MEDICARE, MEDICAID ==
[~2023-08-26] MED LIST changes: +B-12100021 PO; +MELO15TA28
[2023-08-26 13:59] LABS: CHOLESTEROL RISK RATIO 2.56 (<5); HDL CHOLESTEROL 69.1 MG/DL (>40); LDL CHOLESTEROL 91.5 MG/DL (<100); NON-HDL-C 107.9 MG/DL
== END ==
LOC: M PLALAB 09:44
PROVIDERS: ATTEND Family Medicine
DX: Z00.00 Encounter for general adult medical examination without abnormal findings (principal); M25.551 Pain in right hip; M85.9 Disorder of bone density and structure, unspecified; Z79.899 Other long term (current) drug therapy

== ENCOUNTER → 2023-10-15 | Outpatient (CLI) | payer MEDICARE, MEDICAID | LOC: M WHC 09:25 | PROVIDERS: ATTEND Internal Medicine Medical Oncology | DX: C50.919 Malignant neoplasm of unspecified site of unspecified female breast (principal); M85.89 Other specified disorders of bone density and structure, multiple sites ==

== ENCOUNTER → 2023-10-20 | Outpatient (CLI) | payer MEDICARE, MEDICAID | LOC: M WHC 12:49 | PROVIDERS: ATTEND Nurse Practitioner Women's Health | DX: C50.412 Malignant neoplasm of upper-outer quadrant of left female breast (principal) | CPT/HCPCS: 77066; G0279 ==

== ENCOUNTER → 2023-11-25 | Outpatient (CLI) | payer MEDICARE, MEDICAID ==
[2023-11-25 14:20] LABS: HEMATOCRIT 40.4 % (36.0-47.0); HEMOGLOBIN 13.1 g/dl (12.0-15.5); MEAN CORPUSCULAR HGB CONC 32.4 g/dl (32.0-36.5); MEAN CORPUSCULAR VOLUME 92.4 fl (80.0-96.0); PLATELET COUNT, AUTOMATED 295 10^3/uL (150-450); RED BLOOD COUNT 4.37 10^6/uL (4.00-5.40); WHITE BLOOD COUNT 5.1 10^3/uL (4.0-10.0)
[2023-11-25 14:34] LABS: ERYTHROCYTE SEDIMENTATION RATE 2 mm/hr (0-30); INR 0.99; PROTHROMBIN TIME 12.8 SECONDS (12.5-14.5)
[2023-11-25 14:55] LABS: ALBUMIN 4.2 G/DL (3.2-5.2); ALKALINE PHOSPHATASE 48 U/L (46-116); ALT/SGPT 20 U/L (7.0-40); AST/SGOT 20 U/L (<34); BILIRUBIN,TOTAL 0.4 MG/DL (0.3-1.2); BLOOD UREA NITROGEN 19 MG/DL (9-23); CALCIUM LEVEL 10.1 MG/DL (8.3-10.6); CARBON DIOXIDE LEVEL 28 MMOL/L (20-31); CHLORIDE LEVEL 106 MMOL/L (98-107); CREATININE FOR GFR 0.69 MG/DL (0.55-1.30); GLOMERULAR FILTRATION RATE > 60.0 (>39); GLUCOSE, FASTING 89 MG/DL (74-106); POTASSIUM SERUM 4.3 MMOL/L (3.5-5.1); SODIUM LEVEL 140 MMOL/L (136-145); TOTAL PROTEIN 6.7 G/DL (5.7-8.2)
== END ==
LOC: M RAD 13:31
PROVIDERS: ATTEND Orthopaedic Surgery
DX: Z01.818 Encounter for other preprocedural examination (principal); M16.11 Unilateral primary osteoarthritis, right hip

== ENCOUNTER → 2024-10-19 | Outpatient (CLI) | payer MEDICARE, MEDICAID ==
[2024-10-19 14:09] LABS: BASO # 0.1 10^3/uL (0.0-0.2); BASO % 1.3 % (0.0-1.0); EOS # 0.2 10^3/uL (0.0-0.5); EOS % 4.0 % (0.0-3.0); LYMPH # 2.3 10^3/uL (1.5-5.0); LYMPH % 49.7 % (24.0-44.0); MONO # 0.4 10^3/uL (0.0-0.8); MONO % 9.2 % (2.0-8.0); NEUTROPHILS # 1.6 10^3/uL (1.5-8.5); NEUTROPHILS % 35.6 % (36.0-66.0); PLATELET COUNT, AUTOMATED 388 10^3/uL (150-450)
[2024-10-19 14:48] LABS: ALT/SGPT 43 U/L (7.0-40); AST/SGOT 35 U/L (<34); CALCIUM LEVEL 9.4 MG/DL (8.3-10.6); CARBON DIOXIDE LEVEL 30 MMOL/L (20-31); CHLORIDE LEVEL 102 MMOL/L (98-107); CHOLESTEROL LEVEL 174 MG/DL (<200); CHOLESTEROL RISK RATIO 2.47 (<5); CREATININE FOR GFR 0.69 MG/DL (0.55-1.30); GLOMERULAR FILTRATION RATE > 90.0 (>39); LDL CHOLESTEROL 92.4 MG/DL (<100); NON-HDL-C 103.8 MG/DL; POTASSIUM SERUM 4.8 MMOL/L (3.5-5.1); SODIUM LEVEL 140 MMOL/L (136-145); TOTAL 25(OH) VITAMIN D 35.8 NG/ML (20.0-100.0); TRIGLYCERIDES LEVEL 57 MG/DL (<150)
== END ==
LOC: M PLALAB 10:39
PROVIDERS: ATTEND Family Medicine
DX: Z00.00 Encounter for general adult medical examination without abnormal findings (principal); E55.9 Vitamin D deficiency, unspecified; Z79.899 Other long term (current) drug therapy

== ENCOUNTER → 2024-11-19 | Outpatient (CLI) | payer MEDICARE, MEDICAID | LOC: M WHC 09:29 | PROVIDERS: ATTEND Nurse Practitioner Women's Health | DX: Z12.31 Encounter for screening mammogram for malignant neoplasm of breast (principal); C50.919 Malignant neoplasm of unspecified site of unspecified female breast; R92.333 Mammographic heterogeneous density, bilateral breasts ==